=== PATIENT | female | born 1990 | race Hispanic/Latino ===

== ENCOUNTER 2024-03-14 11:10 | Emergency (ER) | payer SELFPAY ==
[~2024-03-14] VITALS: Ht 157.5 cm; Wt 70.8 kg
[2024-03-14 11:15] VITALS: TEMP 98.5
[2024-03-14 12:15] LABS: BASOPHILS # (AUTO) 0.1 (0.0-0.1); BASOPHILS % 0.7 % (0.0-1.0); EOSINOPHILS # (AUTO) 0.1 (0.0-0.4); EOSINOPHILS % 0.8 % (0.0-6.0); HEMATOCRIT 46.8 % (34.2-44.1); HEMOGLOBIN 14.8 g/dL (12.0-16.0); LYMPHOCYTES # (AUTO) 3.7 (1.0-3.2); LYMPHOCYTES % 40.4 % (18.0-39.1); MEAN CORPUSCULAR HEMOGLOBIN 30.1 pg (28-32); MEAN CORPUSCULAR HGB CONC 31.6 g/dL (31-35); MEAN CORPUSCULAR VOLUME 95.1 fL (81-99); MONOCYTES # (AUTO) 0.6 (0.2-0.8); MONOCYTES % 6.5 % (4.4-11.3); NEUTROPHILS # (AUTO) 4.6 (2.1-6.9); NEUTROPHILS % 51.4 % (38.7-80.0); PLATELET COUNT 345 x10e3/uL (140-360); RED BLOOD COUNT 4.92 x10e6/uL (3.6-5.1); WHITE BLOOD COUNT 9.03 x10e3/uL (4.8-10.8)
[2024-03-14 12:25] LABS: INR 0.88; PROTHROMBIN TIME 12.5 seconds (11.9-14.5)
[2024-03-14] MEDS: MECLIZINE HCL 12.5 MG TAB PO ONE (12:25)
[2024-03-14 12:26] LABS: PARTIAL THROMBOPLASTIN TIME 29.7 seconds (23.8-35.5)
[2024-03-14] MEDS: ONDANSETRON HCL INJ 2MG/ML 2ML 2 MG/ML VIAL IV STA (12:26)
[2024-03-14] MEDS: SODIUM CHLORIDE 0.9% 1000ML 1,000 ML IV STA (12:28)
[2024-03-14] MEDS: DIAZEPAM INJ 5 MG/ML 2 ML IV ONE (12:29)
[2024-03-14 12:35] LABS: ALANINE AMINOTRANSFERASE 14 IU/L (0-55); ALBUMIN 4.4 g/dL (3.5-5.0); ALBUMIN/GLOBULIN RATIO 1.4 (0.8-2.0); ALKALINE PHOSPHATASE 74 IU/L (40-150); ANION GAP 14.8 mmol/L (8-16); BILIRUBIN,TOTAL 0.4 mg/dL (0.2-1.2); BLOOD UREA NITROGEN 10 mg/dL (7-26); BUN/CREATININE RATIO 14 (6-25); CALCIUM 9.8 mg/dL (8.4-10.2); CARBON DIOXIDE 19 mmol/L (22-29); CHLORIDE 108 mmol/L (98-107); CREATININE, SERUM 0.73 mg/dL (0.57-1.11); EST GLOMERULAR FILTRATION RATE 111 ML/MIN (>=60); GLUCOSE 84 mg/dL (74-118); POTASSIUM 3.8 mmol/L (3.5-5.1); SODIUM 138 mmol/L (136-145); TOTAL PROTEIN 7.5 g/dL (6.5-8.1)
[2024-03-14 12:43] LABS: TROPONIN I < 0.001 ng/mL (0-0.300)
[2024-03-14 13:40] VITALS: PULSE 60; RESP 16; O2SAT 100
[2024-03-14] MEDS ORDERED: MECLIZINE HCL12.5 MG PO (13:51)
[2024-03-14] MEDS ORDERED: ONDANSETRON ODT4 MG PO (13:51)
== END 2024-03-14 14:03 | disposition home or self-care (01) ==
LOC: EDBD 11:10 → ER 11:31
DX: H81.399 Other peripheral vertigo, unspecified ear (principal); D64.9 Anemia, unspecified; R11.0 Nausea
CPT/HCPCS: 36415; 70450; 80053; 84484; 84702; 85025; 85610; 85730; 99284; J2405; J3360; J7030; J8597

== ENCOUNTER 2024-04-18 20:07 | Emergency (ER) | payer SELFPAY ==
[~2024-04-18] VITALS: Ht 157.5 cm; Wt 70.3 kg
[~2024-04-18 20:07] MED LIST: MECLIZINE HCL12.5 MG PO; ONDANSETRON ODT4 MG PO
[2024-04-18 20:36] VITALS: PULSE 87; RESP 16; TEMP 99.2; O2SAT 100
[2024-04-18] MEDS ORDERED: EMVERM100 MG PO (20:44)
== END 2024-04-18 20:49 | disposition home or self-care (01) ==
LOC: ER 20:15
DX: T18.5XXA Foreign body in anus and rectum, initial encounter (principal); D64.9 Anemia, unspecified
CPT/HCPCS: 99283